=== PATIENT | male | born 1955 | race African-American/Black ===

== ENCOUNTER 2018-05-12 23:19 | Inpatient (IN) | payer MEDICARE ==
[2018-05-13 00:08] LABS: #Lymphocytes 0.7 thou/uL (1.20-3.40); #Monocytes 0.3 thou/uL (0.11-0.59); #Neutrophils 7.6 thou/uL (1.40-6.50); %Basophils 0.2 % (0.0-1.0); %Eosinophils 0.2 % (0.0-10.0); %Lymphocytes 8.1 % (21.0-51.0); %Monocytes 3.2 % (0.0-10.0); %Neutrophils 88.3 % (42.0-75.0); Hemoglobin 13.9 g/dL (14.0-18.0); Mean Corpuscular HGB CONC 34.4 g/dL (32.0-36.0); Mean Corpuscular Hemoglobin 31.5 pg (27.0-31.0); Mean Corpuscular Volume 91.5 fL (78.0-98.0); Mean Platelet Volume 8.5 fL (7.4-10.4); Platelet Count 384 thou/uL (130-400); RBC Distribution Width 13.2 % (11.5-14.5); White Blood Cell (WBC) Count 8.6 thou/uL (4.8-10.8)
[2018-05-13 00:24] LABS: Magnesium 2.3 mg/dL (1.6-2.6)
[2018-05-13 00:25] LABS: ALT (SGPT) 31 U/L (8-55); AST (SGOT) 19 U/L (5-34); Albumin 4.3 g/dL (3.4-4.8); Alkaline Phosphatase 100 U/L (40-150); Anion Gap 30 mmol/L (10-20); BUN (Urea Nitrogen) 31 mg/dL (8.4-25.7); Bilirubin, Total 0.4 mg/dL (0.2-1.2); Calc. Creatinine Clearance 0 mL/min (70-130); Calcium 9.9 mg/dL (7.8-10.44); Carbon Dioxide 11 mmol/L (23-31); Chloride 101 mmol/L (98-107); Estimated GFR-MDRD 40; Globulin 3.4 g/dL (2.4-3.5); Phosphorus 3.7 mg/dL (2.3-4.7); Potassium 4.9 mmol/L (3.5-5.1); Protein, Total 7.7 g/dL (5.8-8.1); Sodium 137 mmol/L (136-145)
[2018-05-13 00:30] LABS: Glucose 570 mg/dL (80-115)
[2018-05-13 00:31] LABS: Amphetamine Not Detected (NotDetected); Benzodiazepine Screen Not Detected (NotDetected); Bilirubin Negative (Negative); Blood, Urine Negative (Negative); Clarity CLEAR (Clear); Cocaine Metabolite Screen Not Detected (NotDetected); Glucose, Urine (Dipstick) >=1000 mg/dL (Negative); Leukocyte Negative (Negative); Medtox Reader # READER 4; Methamphetamine Not Detected (NotDetected); Nitrite Negative (Negative); Opiate Screen Detected (NotDetected); Phencyclidine (PCP) Not Detected (NotDetected); Protein, Urine (Dipstick) Negative (Neg-Trace); Specific Gravity, Urine 1.034 (1.002-1.036); THC/Cannabinoid Screen Not Detected (NotDetected); Tricyclic Screen Not Detected (NotDetected); Urobilinogen 0.2 mg/dL (0.2-1.0)
[2018-05-13 00:32] LABS: Barbiturates Screen Not Detected (NotDetected); Medtox Control Line Valid? VALID (VALID); Methadone Not Detected (NotDetected); Oxycodone Screen Not Detected (NotDetected)
[2018-05-13] MEDS ORDERED: Ondansetron PF 4 MG/2 ML Vial ONE ×2 (00:37→01:51)
[2018-05-13] MEDS ORDERED: Fentanyl 100 MCG/2 ML VIAL ONE (00:55)
[2018-05-13] MEDS ORDERED: Insulin Regular 300 UNITS/3 ML VIAL ONE (00:55)
[2018-05-13] MEDS ORDERED: Insulin Regular 100 units/100 ml in NS IVPB SCH (01:15)
[2018-05-13] MEDS ORDERED: Dextrose 50% Abboject 50 ML SYRINGE ONE ×2 (01:25→02:56)
[2018-05-13] MEDS ORDERED: Morphine 2 MG/ML SYRINGE ONE ×3 (01:51→06:22)
[2018-05-13] MEDS ORDERED: D5 1/2 NS w/20 mEq KCL 1,000 ML IV PRN (01:59)
[2018-05-13] MEDS ORDERED: Dextrose 5 %-0.45 % NaCl 1,000 ML IV PRN (01:59)
[2018-05-13] MEDS ORDERED: Acetaminophen 325 MG TAB PO PRN (01:59)
[2018-05-13] MEDS ORDERED: Sodium Chloride 0.9% 1,000 ML IV PRN ×4 (01:59)
[2018-05-13] MEDS ORDERED: NS 0.9% w/ 20 MEQ KCL 1,000 ML IV PRN ×2 (01:59)
[2018-05-13] MEDS ORDERED: CCU Electrolyte Replacement 1 EACH IVPB ONE (01:59)
[2018-05-13] MEDS ORDERED: Promethazine 25 MG TAB PO PRN (02:03)
[2018-05-13] MEDS ORDERED: Potassium Phosphate 12 MMOL in Sodium Chloride 0.9% 250 ML 250 ML IV PRN (02:15)
[2018-05-13] MEDS ORDERED: Potassium Chloride 40 MEQ in Sodium Chloride 0.9% 250 ML 250 ML IVPB PRN (02:15)
[2018-05-13] MEDS ORDERED: Potassium Chloride 40 MEQ in Premix Bag 1 BAG IVPB PRN (02:15)
[2018-05-13] MEDS ORDERED: Potassium Phosphate 15 MMOL in Sodium Chloride 0.9% 250 ML 250 ML IV PRN (02:15)
[2018-05-13] MEDS ORDERED: Magnesium 2 GM/NS 0.9% 100 ML 2 GM in Premix Bag 1 BAG IVPB PRN (02:15)
[2018-05-13] MEDS ORDERED: Magnesium Oxide 400 MG TAB PO PRN ×2 (02:15)
[2018-05-13] MEDS ORDERED: Potassium Phosphate 9 MMOL in Sodium Chloride 0.9% 100 ML IVPB PRN (02:15)
[2018-05-13] MEDS ORDERED: CCU ELECTROLYTE REPLACEMENT PROTOCOL FS PRN (02:15)
[2018-05-13] MEDS ORDERED: Potassium Chloride 20 MEQ TAB PO PRN (02:15)
[2018-05-13 02:43] LABS: Anion Gap 27 mmol/L (10-20); BUN (Urea Nitrogen) 29 mg/dL (8.4-25.7); Calc. Creatinine Clearance 0 mL/min (70-130); Calcium 9.4 mg/dL (7.8-10.44); Carbon Dioxide 10 mmol/L (23-31); Chloride 108 mmol/L (98-107); Estimated GFR-MDRD 44; Glucose 490 mg/dL (80-115); Potassium 3.9 mmol/L (3.5-5.1); Sodium 141 mmol/L (136-145)
[2018-05-13] MEDS ORDERED: Pantoprazole 40 MG VIAL ONE (02:56)
[2018-05-13 03:22] LABS: #Lymphocytes 0.7 thou/uL (1.20-3.40); #Monocytes 0.8 thou/uL (0.11-0.59); #Neutrophils 11.3 thou/uL (1.40-6.50); %Basophils 0.1 % (0.0-1.0); %Eosinophils 0.2 % (0.0-10.0); %Lymphocytes 5.2 % (21.0-51.0); %Monocytes 6.2 % (0.0-10.0); %Neutrophils 88.3 % (42.0-75.0); Hemoglobin 12.2 g/dL (14.0-18.0); Mean Corpuscular HGB CONC 33.3 g/dL (32.0-36.0); Mean Platelet Volume 8.4 fL (7.4-10.4); Platelet Count 345 thou/uL (130-400); RBC Distribution Width 13.1 % (11.5-14.5); Red Blood Cell (RBC) Count 4.05 mill/uL (4.70-6.10); White Blood Cell (WBC) Count 12.8 thou/uL (4.8-10.8)
[2018-05-13] MEDS ORDERED: Metoclopramide HCl 10 MG/2 ML VIAL ONE (03:35)
[2018-05-13 03:41] LABS: Anion Gap 23 mmol/L (10-20); BUN (Urea Nitrogen) 28 mg/dL (8.4-25.7); Calc. Creatinine Clearance 0 mL/min (70-130); Calcium 9.6 mg/dL (7.8-10.44); Carbon Dioxide 14 mmol/L (23-31); Chloride 111 mmol/L (98-107); Estimated GFR-MDRD 49; Glucose 300 mg/dL (80-115); Sodium 144 mmol/L (136-145)
[2018-05-13 04:32] LABS: Anion Gap 19 mmol/L (10-20); BUN (Urea Nitrogen) 27 mg/dL (8.4-25.7); Calc. Creatinine Clearance 0 mL/min (70-130); Calcium 9.2 mg/dL (7.8-10.44); Carbon Dioxide 14 mmol/L (23-31); Chloride 111 mmol/L (98-107); Estimated GFR-MDRD 52; Glucose 355 mg/dL (80-115); Potassium 3.8 mmol/L (3.5-5.1); Sodium 140 mmol/L (136-145)
[2018-05-13] MEDS ORDERED: Promethazine HCl 25 MG/ML VIAL ONE ×2 (05:09→09:23)
[2018-05-13 05:44] LABS: Anion Gap 19 mmol/L (10-20); BUN (Urea Nitrogen) 26 mg/dL (8.4-25.7); Calc. Creatinine Clearance 0 mL/min (70-130); Calcium 9.3 mg/dL (7.8-10.44); Carbon Dioxide 15 mmol/L (23-31); Chloride 109 mmol/L (98-107); Estimated GFR-MDRD 51; Glucose 378 mg/dL (80-115); Sodium 138 mmol/L (136-145)
[2018-05-13] MEDS ORDERED: Enoxaparin Sodium 40 MG/0.4 ML SYRINGE ONE (07:57)
[2018-05-13] MEDS ORDERED: Famotidine 20 MG TAB ONE (08:38)
[2018-05-13] MEDS ORDERED: Promethazine HCl 25 MG/ML VIAL IM/IV PRN (08:44)
--- NOTE | 2018-05-13 08:45 | RAD ---
AP VIEW CHEST: HISTORY: Chest pain, epigastric pain, vomiting. FINDINGS: AP view chest is obtained. EKG leads are seen over the chest. The lungs are well aerated. No evidence of active intrathoracic disease is seen. No evidence of effusions, pneumonia, or pneumothorax seen. IMPRESSION: Unremarkable AP view chest. POS: [facility]
[2018-05-13] MEDS ORDERED: Dextrose 50% Abboject 50 ML SYRINGE SLOW IVP PRN (08:46)
[2018-05-13] MEDS ORDERED: HumaLOG 300 UNITS/3 ML VIAL SC PRN (08:46)
[2018-05-13] MEDS ORDERED: Dextrose 5% in Water 1,000 ML IV PRN (08:46)
[2018-05-13] MEDS ORDERED: Insulin Glargine 10 UNITS in Pre-Filled Syringe 1 EACH SC SCH (09:00)
--- NOTE | 2018-05-13 09:04 | RAD ---
CHEST 1 VIEW: Date: 05/13/18 HISTORY: Chest pain. Epigastric pain. Emesis. FINDINGS: Portable semiupright chest radiograph demonstrates cervical fusion hardware. There is a right-sided i nternal jugular central venous catheter with distal tip projecting over the cavoatrial junction. Norm al cardiac silhouette. Pulmonary vessels and hilum are normal. Costophrenic angles are clear. No cons olidation or mass. No pneumothorax or osseous abnormalities. IMPRESSION: No acute cardiopulmonary process. POS: [facility]
[2018-05-13] MEDS ORDERED: HYDROcodone/Acetaminophen 10/325 mg Tablet ONE (09:54)
[2018-05-13 10:30] LABS: Anion Gap 23 mmol/L (10-20); BUN (Urea Nitrogen) 23 mg/dL (8.4-25.7); Calc. Creatinine Clearance 0 mL/min (70-130); Calcium 9.1 mg/dL (7.8-10.44); Chloride 113 mmol/L (98-107); Estimated GFR-MDRD 48; Glucose 513 mg/dL (80-115); Sodium 138 mmol/L (136-145)
[2018-05-13 10:34] LABS: Carbon Dioxide 9 mmol/L (23-31); Potassium 6.6 mmol/L (3.5-5.1)
[2018-05-13] MEDS ORDERED: Insulin Regular 300 UNITS/3 ML VIAL SC SCH (10:45)
--- NOTE | 2018-05-13 10:45 | HP ---
PRIMARY CARE PHYSICIAN: Dr. Peralta. CODE STATUS: Full code. TIME OF EVALUATION: 2 a.m. CHIEF COMPLAINT: Nausea, vomiting, throwing up. HISTORY OF PRESENT ILLNESS: This is a 62-year-old male patient with past medical history of diabetes, came to the hospital after having continuous nausea, vomiting, with no clear triggers, no alleviating factors, the patient reported that his symptoms started around 4 p.m. No fevers. Symptoms are severe. In the ER, the patient was diagnosed with DKA and treatment was started, accidentally received a higher dose of insulin. We have been adjusting the fluids and treatment with D50. The patient's DKA has been resolving. We are switching fluids now, and we also continued with DKA protocol and insulin drip depending on the next glucose reading, we will start with a lower dose of insulin to prevent hypoglycemia. Otherwise, we will follow with the DKA protocol. REVIEW OF SYSTEMS: CONSTITUTIONAL: The patient had no fever. He reported chills and generalized weakness. RESPIRATORY: No cough, sputum production, or shortness of breath. CARDIOVASCULAR: No chest pain or palpitations. GASTROINTESTINAL: The patient has nausea and vomiting. No diarrhea. He does have abdominal pain. STUDENT SERVICES DEAN: No dizziness, headache, or feeling lightheaded. GENITOURINARY: No burning on urination. EXTREMITIES: No leg swelling. All other systems were reviewed and negative except for the findings mentioned above. PAST MEDICAL HISTORY: Positive for pulmonary embolism, diabetes, and hypertension. SURGICAL HISTORY: Back surgery; neck surgery; orthopedic surgery of left knee, left hip, right shoulder. PSYCHIATRIC HISTORY: Includes anxiety. SOCIAL HISTORY: The patient drinks socially rarely. Denies any drug use. No smoking history. ALLERGIES: DIPHENHYDRAMINE, THIS HAS BEEN REVIEWED. THE PATIENT HAD RECEIVED MORPHINE WITH NO PROBLEMS. HE REPORTED ALLERGY TO OXYCODONE. REPORTED MEDICATIONS: 1. Glipizide. 2. Lisinopril. 3. Gregory. PHYSICAL EXAMINATION: VITAL SIGNS: On presentation, blood pressure 164/90 with a heart rate 95, respiratory rate was 20, temperature of 98.5, pain was 10/10, oxygen saturation was 100% on room air. GENERAL APPEARANCE: The patient is alert, in distress due to abdominal pain and continues to have nausea and vomiting. HEENT: Eyes, normal conjunctivae. Dry oral mucosae. Anicteric. No JVD. RESPIRATORY: Bilateral air entry. No rales. No wheezing. Symmetric expansion. CARDIOVASCULAR: The patient is tachycardic. Normal rhythm. No murmurs. No gallops. No edema. ABDOMEN: Soft. Normal bowel sounds. Tender. MUSCULOSKELETAL: Baseline range of motion and strength. No tenderness. SKIN: Warm and intact. No pallor. No rash. No redness. Peripheral pulses are present. Capillary refill seems to be intact. NEURO: No evidence of any new focal weakness. Baseline speech. Cranial nerves seems to be intact. PSYCH: The patient is in good mood. Anxious and in distress due to the pain and nausea and vomiting. Optimal judgment. DIAGNOSTIC STUDIES: EKG was disclosed with performing physician from ER and was reviewed. The patient has sinus bradycardia at a rate of 102, CA 130, QRS 70, QT corrected 490. Chest x-ray was reviewed by myself, report is pending. There are no significant abnormalities on the chest. Central line was placed in the right position. LABORATORY DATA: Labs were reviewed. The patient had a white count of 8.6 and repeat one went to 12, hemoglobin 13, and platelets 384. Sodium 137, potassium 4.9, chloride 101, carbon dioxide 11 and has corrected to 14, 15; anion gap 30 and has corrected to 19, BUN 31 and has come down to 26, initial creatinine was 2.0 and has come down to 1.6. Glucose was 570, came down to 370, phosphorus 3.7. Troponin was normal. Beta hydroxybutyrate 7.78. Glucosuria, ketonuria, and opioids were detected in urine. ASSESSMENT AND PLAN: The patient will be placed in the ICU for the following medical problems, more than minutes spent at bedside assessment of patient, monitoring the blood sugar and adjustment of treatment. 1. Diabetic ketoacidosis. The patient has been placed in diabetic ketoacidosis protocol, initial bolus was a higher dose, so we have been adjusting the fluids to prevent hypokalemia and hypoglycemia. The patient has been slowly improving, we will continue to adjust treatment as needed. 2. Severe abdominal pain. The patient needed for optimal pain control. This placing him at risk for complications from treatment. 3. Acute kidney injury, on presentation with a creatinine 2.0, has improved to 1.6. 4. High anion gap metabolic acidosis secondary to diabetic ketoacidosis, has been resolving. Anion gap is closed. Bicarb is still low at 15. 5. needing antiemetic medications. 6. Deep venous thrombosis prophylaxis. Job ID: [id number]
[2018-05-13] MEDS ORDERED: HumaLOG 300 UNITS/3 ML VIAL ONE (10:46)
[2018-05-13 13:30] LABS: Anion Gap 15 mmol/L (10-20); BUN (Urea Nitrogen) 22 mg/dL (8.4-25.7); Calc. Creatinine Clearance 0 mL/min (70-130); Calcium 8.7 mg/dL (7.8-10.44); Carbon Dioxide 16 mmol/L (23-31); Chloride 116 mmol/L (98-107); Estimated GFR-MDRD 58; Glucose 337 mg/dL (80-115); Magnesium 2.1 mg/dL (1.6-2.6); Phosphorus 1.8 mg/dL (2.3-4.7); Potassium 4.5 mmol/L (3.5-5.1); Sodium 142 mmol/L (136-145)
--- NOTE | 2018-05-13 13:40 | PDOC.EVN ---
Event Note - Event Note Event Note: pt seen and examined.chart reviewed.C/O pain in abdomen and vomiting Noted that AG closed and then open up as pt did not receive any insulin Overnight due to inadvertant use of a bolus dose given by mistake. Lantus ordered but not given due to delay from getting it from pharmacy. repeat labs show pt back in DKA. Will restart on Insulin drip and DKA protocol. High potassium noted and it will be treated with IV Insulin / Labs rechecked in one hour after drip and are better .Recheck next BMP in 3 hours and cont DKA prototcol. Pt and family updated about plan. Pt reports that he is a Typ[e 2 diabetic and does not take any insulin at home as it makes him sick.Education provided about insulin necessity halfway.Will consult dietitian.
[2018-05-13] MEDS ORDERED: Potassium Phosphate 9 MMOL in Sodium Chloride 0.9% 250 ML 250 ML IVPB SCH (13:45)
[2018-05-13] MEDS: D5 NS w/ 40 mEq KCl 1,000 ML IV SCH ×4 (13:52→14:00)
[2018-05-13] MEDS: Enoxaparin Sodium 40 MG/0.4 ML SYRINGE SC SCH (13:53)
[2018-05-13] MEDS: Sodium Chloride 0.9% 1,000 ML IV SCH ×2 (13:54→14:40)
[2018-05-13] MEDS: Famotidine 20 MG TAB PO SCH ×2 (13:55→20:27)
[2018-05-13] MEDS: Gabapentin 300 MG CAP PO SCH ×3 (13:59→20:27)
[2018-05-13] MEDS: HYDROcodone/Acetaminophen 10/325 mg Tablet PO PRN ×2 (14:57→22:51)
[2018-05-13 16:59] LABS: Anion Gap 10 mmol/L (10-20); BUN (Urea Nitrogen) 18 mg/dL (8.4-25.7); Calc. Creatinine Clearance 0 mL/min (70-130); Calcium 8.4 mg/dL (7.8-10.44); Carbon Dioxide 20 mmol/L (23-31); Chloride 117 mmol/L (98-107); Estimated GFR-MDRD 76; Glucose 154 mg/dL (80-115); Potassium 3.9 mmol/L (3.5-5.1); Sodium 143 mmol/L (136-145)
[2018-05-13] MEDS: Sodium Chloride 0.45% 1,000 ML IV SCH (17:17)
[2018-05-13] MEDS: Insulin Glargine 20 UNITS in Pre-Filled Syringe 1 EACH SC SCH (20:28)
[2018-05-13] MEDS ORDERED: Docusate 100 MG CAP PO SCH (21:00)
--- NOTE | 2018-05-13 22:37 | CON ---
DATE OF CONSULTATION: 05/13/2018 SERVICE: Pulmonary Medicine. REASON FOR CONSULT: ICU patient. HISTORY OF PRESENT ILLNESS: The patient is a 62-year-old male with past medical history significant for a 4-5 day history of cough, congestion, and green sputum production. He then had a 3-day history of nausea and vomiting. He had a positive sick contact. He denies any current shortness of breath, fever or abdominal discomfort. Overnight, he improved modestly. Otherwise, there has been no interval change to his condition. He does not take any insulin at home. He actually has an aversion to taking any. PAST MEDICAL HISTORY: 1. Type 2 diabetes mellitus. 2. History of pulmonary embolism. 3. Hypertension. PAST SURGICAL HISTORY: 1. Back surgery. 2. Neck surgery. 3. Left knee surgery. 4. Left hip surgery. 5. Right shoulder surgery. SOCIAL HISTORY: He drinks rarely. He denies any alcohol, tobacco or illicit drug use. FAMILY HISTORY: Noncontributory. ALLERGIES: BENADRYL, MORPHINE, OXYCODONE. MEDICATIONS: List of his inpatient medications was reviewed. Multiple updates were made. REVIEW OF SYSTEMS: General, head, ears, eyes, nose, throat, cardiovascular, respiratory, GI, , musculoskeletal, neurologic, and skin are negative except as mentioned in the HPI. PHYSICAL EXAMINATION: VITAL SIGNS: Afebrile, pulse 89, blood pressure 162/73, respirations 18, saturation 100% on room air. GENERAL: The patient is awake, alert, in no apparent distress. LUNGS: Decent air entry. There is no prolonged expiratory phase or wheezing present. HEART: Normal rate and regular. ABDOMEN: Soft, nontender, and nondistended. Bowel sounds are positive. MUSCULOSKELETAL: No cyanosis or clubbing. There is no pitting in the bilateral lower extremities noted. NEUROLOGIC: Grossly nonfocal. LABORATORY DATA: WBC 12.8, hemoglobin 12.2, platelets 345,000. Creatinine 1.48 and gently downtrending. Basic metabolic profile is otherwise unremarkable. Phosphorus is 1.8, which is currently being replaced and magnesium 2.1. Urinalysis is positive for glycosuria, and ketonuria. Opiates are positive on the urine drug screen. BHB is 7.78. Urine culture is growing a contaminant. IMAGING: Chest x-ray demonstrates no acute cardiopulmonary abnormality. ASSESSMENT: 1. Acute bronchitis. 2. Diabetic ketoacidosis. 3. Type 2 diabetes mellitus. 4. Acute kidney injury, improving. PLAN: Since his heart rate is much better and he is now euvolemic, I will back off on his fluids to a significant degree. We will continue the insulin drip until his gap is closed, and he is tolerating p.o. with a good appetite. Once this occurs, we will make an attempt to transition him once again on to long-acting insulin. Pulmonary will continue to follow in this location. Job ID: [id number]
[2018-05-13] MEDS: Ondansetron PF 4 MG/2 ML Vial IVP PRN (22:51)
[2018-05-14] MEDS: Sodium Chloride 0.45% 1,000 ML IV SCH ×2 (01:11→10:10)
[2018-05-14] MEDS: HYDROcodone/Acetaminophen 10/325 mg Tablet PO PRN ×4 (04:14→18:42)
[2018-05-14] MEDS: Famotidine 20 MG TAB PO SCH ×2 (04:14→20:50)
[2018-05-14 04:57] LABS: Anion Gap 11 mmol/L (10-20); BUN (Urea Nitrogen) 13 mg/dL (8.4-25.7); Calc. Creatinine Clearance 0 mL/min (70-130); Calcium 8.2 mg/dL (7.8-10.44); Carbon Dioxide 20 mmol/L (23-31); Chloride 114 mmol/L (98-107); Estimated GFR-MDRD Greater than 90; Glucose 166 mg/dL (80-115); Potassium 4.2 mmol/L (3.5-5.1); Sodium 141 mmol/L (136-145)
[2018-05-14 05:12] LABS: Phosphorus 2.5 mg/dL (2.3-4.7)
[2018-05-14] MEDS: HumaLOG 300 UNITS/3 ML VIAL SC PRN (06:07)
[2018-05-14] MEDS: Gabapentin 300 MG CAP PO SCH ×3 (08:28→20:51)
[2018-05-14] MEDS: Enoxaparin Sodium 40 MG/0.4 ML SYRINGE SC SCH (08:28)
[2018-05-14] MEDS: Lisinopril 20 MG TAB PO SCH (08:28)
[2018-05-14] MEDS ORDERED: Polyethylene Glycol 3350 17 GM Packet PO SCH (09:00)
[2018-05-14] MEDS ORDERED: Mag-Al 1200 mg/1200 mg/30 ML UDCUP PO PRN (10:40)
--- NOTE | 2018-05-14 10:43 | PDOC.PN ---
- Subjective Encounter Start Date: 05/14/18 Encounter Start Time: 10:41 Subjective: feels better. still some heartburn -: no vomiting this morning.tolerating liquid diet - Objective Resuscitation Status - Order Detail: 05/13/18 01:59 Resuscitation Status Routine Resuscitation Status: FULL: Full Resuscitation MAR Reviewed: Yes Vital Signs & Weight: Vital Signs (12 hours) Temp Pulse Resp BP BP Pulse Ox 05/14/18 08:28 168/89 H 05/14/18 07:43 100 05/14/18 07:38 99.2 F 82 163/94 H 100 05/14/18 04:00 98.7 F 90 18 156/85 H 100 05/14/18 00:00 98.9 F 91 16 158/85 H 100 Weight Weight 5.644 oz I&O: 05/13/18 05/14/18 05/15/18 06:59 06:59 06:59 Intake Total 5055 120 Output Total 700 Balance 4355 120 Result Diagrams: 05/13/18 03:09 05/14/18 04:05 Additional Labs: Accuchecks 05/14/18 05/14/18 05/13/18 06:07 04:19 21:06 POC Glucose 170 H 166 H 111 H 05/13/18 05/13/18 05/13/18 20:17 19:14 18:14 POC Glucose 93 193 H 100 05/13/18 05/13/18 05/13/18 17:17 16:17 15:17 POC Glucose 141 H 211 H 205 H 05/13/18 05/13/18 05/13/18 14:16 13:17 12:15 POC Glucose 224 H 300 H 354 H 05/13/18 10:42 POC Glucose 414 H Laboratory Tests 05/12/18 05/13/18 05/13/18 23:53 02:16 03:09 Anion Gap 30 H 27 H 23 H Creatinine 2.03 H 1.90 H 1.73 H Phosphorus Magnesium 05/13/18 05/13/18 05/13/18 03:58 05:00 09:56 Anion Gap 19 19 23 H Creatinine 1.62 H 1.65 H Phosphorus Magnesium 05/13/18 05/13/18 05/14/18 12:52 16:29 04:05 Anion Gap 15 10 11 Creatinine Phosphorus Magnesium 2.0 05/14/18 04:05 Anion Gap Creatinine Phosphorus 2.5 Magnesium Phys Exam - Physical Examination Constitutional: NAD HEENT: PERRLA, moist MMs, sclera anicteric, oral pharynx no lesions Neck: no nodes, no JVD, supple, full ROM Respiratory: no wheezing, no rales, no rhonchi Cardiovascular: RRR, no significant murmur Gastrointestinal: soft, non-tender, no distention, positive bowel sounds Musculoskeletal: no edema, pulses present Neurological: non-focal, normal sensation, moves all 4 limbs Psychiatric: normal affect, A&O x 3 Skin: no rash Dx/Plan (1) Diabetic keto-acidosis Code(s): E13.10 - OTH DIABETES MELLITUS WITH KETOACIDOSIS WITHOUT COMA Status : Acute Qualifiers: Diabetes mellitus type: type 2 Diabetes mellitus complication detail: without coma Qualified Code(s): E11.10 - Type 2 diabetes mellitus with ketoacidosis without coma (2) Uncontrolled diabetes mellitus Code(s): E11.65 - TYPE 2 DIABETES MELLITUS WITH HYPERGLYCEMIA Status: Acute (3) HTN (hypertension) Code(s): I10 - ESSENTIAL (PRIMARY) HYPERTENSION Status: Chronic - Plan DVT proph w/SCDs Out of DKA.cont lantus and SSI.reduce IVF -: add PPI -: accuchecks achs. -: HD stable. -: donna HERRERA tomorrow.education provided * . Review of Systems - Review of Systems Constitutional: weakness, malaise. negative: fever, chills, sweats, other ENT: negative: Ear Pain, Ear Discharge, Nose Pain, Nose Discharge, Nose Congestion, Mouth Pain, Mouth Swelling, Throat Pain, Throat Swelling, Other Respiratory: negative: Cough, Dry, Shortness of Breath, Hemoptysis, SOB with Excertion, Pleuritic Pain, Sputum, Wheezing Cardiovascular: negative: chest pain, palpitations, orthopnea, paroxysmal nocturnal dyspnea, edema, light headedness, other Gastrointestinal: Nausea, Abdominal Pain. negative: Vomiting, Diarrhea, Constipation, Melena, Hematochezia, Other Genitourinary: negative: Dysuria, Frequency, Incontinence, Hematuria, Retention , Other Musculoskeletal: negative: Neck Pain, Shoulder Pain, Arm Pain, Back Pain, Hand Pain, Leg Pain, Foot Pain, Other Neurological: negative: Weakness, Numbness, Incoordination, Change in Speech, Confusion, Seizures, Other - Medications/Allergies Allergies/Adverse Reactions: Allergies Allergy/AdvReac Type Severity Reaction Status Date / Time morphine Allergy Verified 05/13/18 15:01 diphenhydramine HCl AdvReac Unknown Verified 05/13/18 15:01 [From Benadryl] Medications: Current Medications Acetaminophen (Tylenol) 650 mg PO Q4H PRN PRN Reason: Headache/Fever/Mild Pain (1-3) Hydrocodone Bitart/Acetaminophen ([place] 10/325) 1 tab PO Q4H PRN PRN Reason: Moderate Pain (4-6) Last Admin: 05/14/18 08:33 Dose: 1 tab Al Hydroxide/Mg Hydroxide (Maalox) 30 ml PO Q4H PRN PRN Reason: Heartburn or Indigestion Dextrose/Water (Dextrose 50%) 25 gm SLOW IVP PRN PRN PRN Reason: Hypoglycemia Enoxaparin Sodium (Lovenox) 40 mg SC 0900 [facility] Last Admin: 05/14/18 08:28 Dose: 40 mg Famotidine (Pepcid) 20 mg PO BID [facility] Last Admin: 05/14/18 04:14 Dose: 20 mg Gabapentin (Neurontin) 600 mg PO TID [facility] Last Admin: 05/14/18 08:28 Dose: 600 mg Glucagon (Glucagon) 1 mg IM PRN PRN PRN Reason: Hypoglycemia Potassium Chloride 40 meq/ (Sodium Chloride) 270 mls @ 135 mls/hr IVPB ASDIR PRN PRN Reason: FOR SERUM K+ 2.5 - 3.5 Potassium Chloride 40 meq/ (Device) 100 mls @ 50 mls/hr IVPB ASDIR PRN PRN Reason: FOR SERUM K+ 2.5 - 3.5 Magnesium Sulfate 1 gm/ Sodium (Chloride) 102 mls @ 102 mls/hr IV PRN PRN PRN Reason: MAG LEVEL 1.4 - 2.0 Magnesium Sulfate 2 gm/ Device 100 mls @ 100 mls/hr IVPB ASDIR PRN PRN Reason: MAGNESIUM < 1.4 Potassium Phosphate 9 mmol/ (Sodium Chloride) 103 mls @ 25.75 mls/hr IVPB ASDIR PRN PRN Reason: Phosphate 1.0-1.8 Potassium Phosphate 12 mmol/ (Sodium Chloride) 254 mls @ 63.5 mls/hr IV ASDIR PRN PRN Reason: Serum phosphate 0.5-0.9 Potassium Phosphate 15 mmol/ (Sodium Chloride) 255 mls @ 63.75 mls/hr IV ASDIR PRN PRN Reason: Serum Phos < 0.5 Dextrose/Water (D5w) 1,000 mls @ 0 mls/hr IV .Q0M PRN PRN Reason: Hypoglycemia Insulin Glargine 20 units/ (Miscellaneous Medication) 0.2 mls @ 0 mls/hr SC HS [facility] Last Admin: 05/13/18 20:28 Dose: 0.2 mls Sodium Chloride (1/2 Normal Saline) 1,000 mls @ 50 mls/hr IV .Q20H [facility] Last Admin: 05/14/18 10:10 Dose: 1,000 mls Insulin Human Lispro (Humalog) 0 units SC .MODERATE SLIDING SC PRN PRN Reason: Moderate Correctional Scale Last Admin: 05/14/18 06:07 Dose: 2 unit Insulin Human Lispro (Humalog) 0 units SC .BEDTIME SLIDING SC PRN PRN Reason: Bedtime Correctional Scale Levofloxacin (Levaquin) 750 mg PO DAILY [facility] Stop: 05/17/18 09:01 Last Admin: 05/14/18 08:28 Dose: 750 mg Lisinopril (Zestril) 20 mg PO DAILY [facility] Last Admin: 05/14/18 08:28 Dose: 20 mg Magnesium Oxide (Magnesium Oxide) 400 mg PO BIDPRN PRN PRN Reason: FOR SERUM MAG 1.4 - 2.0 Magnesium Oxide (Magnesium Oxide) 800 mg PO PRN PRN PRN Reason: FOR SERUM MAG < 1.4 Miscellaneous Medication (Phos-Nak) 1 pkt PO TIDPRN PRN PRN Reason: FOR PHOS LEVEL 1.0 - 1.8 Miscellaneous Medication (Phos-Nak) 2 pkt PO TIDPRN PRN PRN Reason: FOR PHOS LEVEL 0.5 - 1.0 Ccu Electrolyte (Replacement Protocol) 0 each FS PRN PRN PRN Reason: FOR ELECTROLYTE REPLACEMENT Ondansetron HCl (Zofran) 4 mg IVP Q6H PRN PRN Reason: Nausea/Vomiting Last Admin: 05/13/18 22:51 Dose: 4 mg Pantoprazole Sodium (Protonix) 40 mg IVP ONE [facility] Potassium Chloride (K-Dur) 40 meq PO ASDIR PRN PRN Reason: FOR SERUM K+ 2.5 - 3.5 Potassium Chloride (Klor-Con) 40 meq PER TUBE ASDIR PRN PRN Reason: FOR SERUM K+ 2.5-3.5 Promethazine HCl (Phenergan) 25 mg PO Q6HR PRN PRN Reason: Nausea/Vomiting Promethazine HCl (Phenergan) 25 mg IM/IV Q6H PRN PRN Reason: Nausea/Vomiting Sodium Chloride (Flush - Normal Saline) 10 ml IVF Q12HR [facility] Last Admin: 05/14/18 08:29 Dose: 10 ml Sodium Chloride (Flush - Normal Saline) 10 ml IVF PRN PRN PRN Reason: Saline Flush
[2018-05-14] MEDS ORDERED: Pantoprazole 40 MG VIAL IVP SCH (10:45)
[2018-05-14 11:49] VITALS: BMI 21.8
--- NOTE | 2018-05-14 12:52 | EKG ---
Test Reason : CHEST PAIN Blood Pressure : / mmHG Vent. Rate : 102 BPM Atrial Rate : 102 BPM P-R Int : 130 ms QRS Dur : 070 ms QT Int : 376 ms P-R-T Axes : 080 102 059 degrees QTc Int : 490 ms Sinus tachycardia Possible Left atrial enlargement Rightward axis Pulmonary disease pattern Abnormal ECG Confirmed by SAVANNAH ALCAZAR [id number]), legal editor GAMA CH ([id number] on 05/14/2018 12:52:02 PM Referred By: Confirmed By:SAVANNAH ALCAZAR
--- NOTE | 2018-05-14 16:56 | PRG ---
DATE OF SERVICE: 05/14/2018 SERVICE: Pulmonary Medicine. INTERVAL HISTORY: The patient is doing okay from a respiratory standpoint. He is breathing comfortably. He is not having a cough today. He has complaints of abdominal discomfort. He has not had a bowel movement and denies passing gas. PHYSICAL EXAMINATION: VITAL SIGNS: Afebrile, pulse 74, blood pressure 171/87, respirations 17, and saturation 100% on room air. GENERAL: The patient is awake, alert, in no apparent distress. LUNGS: Excellent air entry. There is no prolonged expiratory phase or wheezing present. HEART: Normal rate, regular. ABDOMEN: Soft. Tender to palpation. There is a little bit of rebound. Bowel sounds are positive. LABORATORY DATA: WBC 12.8. Sodium 141, chloride 114 and downtrending, bicarb 20, anion gap 11. Magnesium 2.0, phosphorus 2.5. Urine culture is growing a contaminant. ASSESSMENT: 1. Acute bronchitis, improving. 2. Diabetic ketoacidosis, resolved. 3. Type 2 diabetes mellitus. 4. Acute kidney injury, resolved. 5. Abdominal pain. DISCUSSION AND PLAN: The patient's appetite really has not picked up firmly. At this point, however, he has no further requirements for inpatient Pulmonary Critical Care opinion. If his abdominal discomfort persists, an additional investigation may be warranted. I will sign off at this time. Please call if he has significant clinical deterioration. Job ID: [id number]
[2018-05-14] MEDS: Ondansetron PF 4 MG/2 ML Vial IVP PRN (18:44)
[2018-05-14] MEDS: Insulin Glargine 20 UNITS in Pre-Filled Syringe 1 EACH SC SCH (20:52)
[2018-05-15] MEDS: HYDROcodone/Acetaminophen 10/325 mg Tablet PO PRN ×5 (00:43→21:04)
[2018-05-15] MEDS: Sodium Chloride 0.45% 1,000 ML IV SCH ×2 (05:29→19:19)
[2018-05-15] MEDS: Ondansetron PF 4 MG/2 ML Vial IVP PRN (07:18)
[2018-05-15 08:05] LABS: Anion Gap 13 mmol/L (10-20); BUN (Urea Nitrogen) 9 mg/dL (8.4-25.7); Calc. Creatinine Clearance 83 mL/min (70-130); Carbon Dioxide 21 mmol/L (23-31); Chloride 108 mmol/L (98-107); Estimated GFR-MDRD Greater than 90; Glucose 116 mg/dL (80-115); Potassium 4.1 mmol/L (3.5-5.1); Sodium 138 mmol/L (136-145)
[2018-05-15] MEDS ORDERED: Metoclopramide HCl 10 MG/2 ML VIAL IVP PRN (08:43)
[2018-05-15] MEDS: Sodium Chloride 0.9% 1,000 ML IV SCH ×2 (09:54→21:05)
[2018-05-15] MEDS: Pantoprazole 40 MG VIAL IVP SCH (09:57)
[2018-05-15] MEDS: Gabapentin 300 MG CAP PO SCH ×3 (10:05→21:05)
[2018-05-15] MEDS: Lisinopril 20 MG TAB PO SCH (10:05)
--- NOTE | 2018-05-15 10:05 | CT ---
CT OF THE ABDOMEN AND PELVIS WITH IV CONTRAST: DATE: 05/15/2018. PROVIDED CLINICAL HISTORY: Abdominal pain. FINDINGS: Comparison is made with the examination dated 09/22/2014. The visualized lung bases are free of signi ficant opacity. The liver, spleen, pancreas, kidneys, and adrenal glands demonstrate no significant abnormality. Sim ple-appearing left renal cyst is seen. There is no bowel dilatation, inflammatory fat stranding, free fluid, or free air apparent. Evaluati on of the pelvis is somewhat limited due to beam-hardening artifact from left total hip arthroplasty. Lower lumbar spine postoperative changes and IVC filter are noted. IMPRESSION: No evidence for an acute process. POS: [facility]
[2018-05-15] MEDS: Enoxaparin Sodium 40 MG/0.4 ML SYRINGE SC SCH (10:06)
[2018-05-15] MEDS ORDERED: Polyethylene Glycol 3350 17 GM Packet PO PRN (10:55)
[2018-05-15] MEDS ORDERED: Bisacodyl 5 MG TAB PO PRN (10:55)
--- NOTE | 2018-05-15 10:56 | PDOC.PN ---
- Subjective Encounter Start Date: 05/15/18 Encounter Start Time: 10:54 Subjective: c/o pain in abdomen ,worse in Left side w left ant chest wall pain -: c/o nausea.does not want to eat - Objective Resuscitation Status - Order Detail: 05/13/18 01:59 Resuscitation Status Routine Resuscitation Status: FULL: Full Resuscitation MAR Reviewed: Yes Vital Signs & Weight: Vital Signs (12 hours) Temp Pulse Resp BP BP Pulse Ox 05/15/18 10:05 165/90 H 05/15/18 07:43 98.3 F 82 16 165/90 H 99 05/15/18 03:40 99.0 F 95 12 166/83 H 99 05/14/18 23:59 98.9 F 85 12 177/85 H 99 Weight Weight 147 lb 11.2 oz I&O: 05/14/18 05/15/18 05/16/18 06:59 06:59 06:59 Intake Total 5055 2172 Output Total 700 1700 Balance 4355 472 Result Diagrams: 05/13/18 03:09 05/15/18 06:29 Additional Labs: Accuchecks 05/15/18 05/14/18 05/14/18 05:33 20:51 16:18 POC Glucose 120 H 145 H 109 05/14/18 12:25 POC Glucose 123 H Microbiology 05/13/18 00:10 Urine clean catch Urine Culture - Final Beta-hemolytic Streptococcus Laboratory Tests 05/13/18 05/13/18 05/13/18 09:56 12:52 16:29 Carbon Dioxide 9 L* 16 L 20 L Lipase 05/14/18 05/15/18 05/15/18 04:05 06:29 06:29 Carbon Dioxide 20 L 21 L Lipase 44 Radiology Reviewed by me: Yes (CT A/P-no acute process) Phys Exam - Physical Examination Constitutional: NAD uncomfortable HEENT: PERRLA, moist MMs, sclera anicteric, oral pharynx no lesions Neck: no nodes, no JVD, supple, full ROM Respiratory: no wheezing, no rales, no rhonchi, clear to auscultation bilateral Cardiovascular: RRR, no significant murmur TTP ant left chest wall Gastrointestinal: soft, no distention, positive bowel sounds TTP left lower quadrant and milder everywhere else Musculoskeletal: no edema, pulses present swelling in feet Neurological: non-focal, normal sensation, moves all 4 limbs Lymphatic: no nodes Psychiatric: normal affect, A&O x 3 Skin: no rash Dx/Plan (1) Abdominal pain Code(s): R10.9 - UNSPECIFIED ABDOMINAL PAIN Status: Acute (2) Diabetic keto-acidosis Code(s): E13.10 - OTH DIABETES MELLITUS WITH KETOACIDOSIS WITHOUT COMA Status : Acute Qualifiers: Diabetes mellitus type: type 2 Diabetes mellitus complication detail: without coma Qualified Code(s): E11.10 - Type 2 diabetes mellitus with ketoacidosis without coma Comment: Improved (3) Uncontrolled diabetes mellitus Code(s): E11.65 - TYPE 2 DIABETES MELLITUS WITH HYPERGLYCEMIA Status: Acute (4) HTN (hypertension) Code(s): I10 - ESSENTIAL (PRIMARY) HYPERTENSION Status: Chronic (5) Chronic pain Code(s): G89.29 - OTHER CHRONIC PAIN Status: Acute - Plan out of bed/ambulate, DVT proph w/lovenox, DVT proph w/SCDs DKA rsolved.Acidosis improving.Ct A/P WNL. -: no clear reason for Abd pain.will make NPo and start IVF. -: re-introduce liquid diet tomorow. -: pt w h/o chr pain & narcotic dependenec.? withdrawl -: Lipase checked and NL. check CPK given tenderness.am labs * .reduce lantus as NPO * add amlodipine given high BP.on CLYDE-I Bowel regimen Review of Systems - Review of Systems Constitutional: weakness, malaise. negative: fever, chills, sweats, other Respiratory: negative: Cough, Dry, Shortness of Breath, Hemoptysis, SOB with Excertion, Pleuritic Pain, Sputum, Wheezing Cardiovascular: negative: chest pain, palpitations, orthopnea, paroxysmal nocturnal dyspnea, edema, light headedness, other Gastrointestinal: Nausea, Abdominal Pain, Constipation. negative: Vomiting, Diarrhea, Melena, Hematochezia, Other Genitourinary: negative: Dysuria, Frequency, Incontinence, Hematuria, Retention , Other Musculoskeletal: negative: Neck Pain, Shoulder Pain, Arm Pain, Back Pain, Hand Pain, Leg Pain, Foot Pain, Other Neurological: negative: Weakness, Numbness, Incoordination, Change in Speech, Confusion, Seizures, Other - Medications/Allergies Allergies/Adverse Reactions: Allergies Allergy/AdvReac Type Severity Reaction Status Date / Time morphine Allergy Verified 05/13/18 15:01 diphenhydramine HCl AdvReac Unknown Verified 05/13/18 15:01 [From Balaji] Medications: Current Medications Acetaminophen (Tylenol) 650 mg PO Q4H PRN PRN Reason: Headache/Fever/Mild Pain (1-3) Hydrocodone Bitart/Acetaminophen ([place] 10/325) 1 tab PO Q4H PRN PRN Reason: Moderate Pain (4-6) Last Admin: 05/15/18 05:28 Dose: 1 tab Al Hydroxide/Mg Hydroxide (Maalox) 30 ml PO Q4H PRN PRN Reason: Heartburn or Indigestion Dextrose/Water (Dextrose 50%) 25 gm SLOW IVP PRN PRN PRN Reason: Hypoglycemia Enoxaparin Sodium (Lovenox) 40 mg SC 0900 [facility] Last Admin: 05/15/18 10:06 Dose: 40 mg Gabapentin (Neurontin) 600 mg PO TID [facility] Last Admin: 05/15/18 10:05 Dose: 600 mg Glucagon (Glucagon) 1 mg IM PRN PRN PRN Reason: Hypoglycemia Potassium Chloride 40 meq/ (Sodium Chloride) 270 mls @ 135 mls/hr IVPB ASDIR PRN PRN Reason: FOR SERUM K+ 2.5 - 3.5 Potassium Chloride 40 meq/ (Device) 100 mls @ 50 mls/hr IVPB ASDIR PRN PRN Reason: FOR SERUM K+ 2.5 - 3.5 Magnesium Sulfate 1 gm/ Sodium (Chloride) 102 mls @ 102 mls/hr IV PRN PRN PRN Reason: MAG LEVEL 1.4 - 2.0 Magnesium Sulfate 2 gm/ Device 100 mls @ 100 mls/hr IVPB ASDIR PRN PRN Reason: MAGNESIUM < 1.4 Potassium Phosphate 9 mmol/ (Sodium Chloride) 103 mls @ 25.75 mls/hr IVPB ASDIR PRN PRN Reason: Phosphate 1.0-1.8 Potassium Phosphate 12 mmol/ (Sodium Chloride) 254 mls @ 63.5 mls/hr IV ASDIR PRN PRN Reason: Serum phosphate 0.5-0.9 Potassium Phosphate 15 mmol/ (Sodium Chloride) 255 mls @ 63.75 mls/hr IV ASDIR PRN PRN Reason: Serum Phos < 0.5 Dextrose/Water (D5w) 1,000 mls @ 0 mls/hr IV .Q0M PRN PRN Reason: Hypoglycemia Insulin Glargine 20 units/ (Miscellaneous Medication) 0.2 mls @ 0 mls/hr SC HS [facility] Last Admin: 05/14/18 20:52 Dose: 0.2 mls Sodium Chloride (1/2 Normal Saline) 1,000 mls @ 50 mls/hr IV .Q20H [facility] Last Admin: 05/15/18 05:29 Dose: 1,000 mls Sodium Chloride (Normal Saline 0.9%) 1,000 mls @ 100 mls/hr IV .Q10H [facility] Last Admin: 05/15/18 09:54 Dose: 1,000 mls Insulin Human Lispro (Humalog) 0 units SC .MODERATE SLIDING SC PRN PRN Reason: Moderate Correctional Scale Last Admin: 05/14/18 06:07 Dose: 2 unit Insulin Human Lispro (Humalog) 0 units SC .BEDTIME SLIDING SC PRN PRN Reason: Bedtime Correctional Scale Levofloxacin (Levaquin) 750 mg PO DAILY [facility] Stop: 05/17/18 09:01 Last Admin: 05/15/18 10:05 Dose: 750 mg Lisinopril (Zestril) 20 mg PO DAILY [facility] Last Admin: 05/15/18 10:05 Dose: 20 mg Magnesium Oxide (Magnesium Oxide) 400 mg PO BIDPRN PRN PRN Reason: FOR SERUM MAG 1.4 - 2.0 Magnesium Oxide (Magnesium Oxide) 800 mg PO PRN PRN PRN Reason: FOR SERUM MAG < 1.4 Metoclopramide HCl (Reglan) 10 mg IVP Q6H PRN PRN Reason: Nausea/Vomiting Miscellaneous Medication (Phos-Nak) 1 pkt PO TIDPRN PRN PRN Reason: FOR PHOS LEVEL 1.0 - 1.8 Miscellaneous Medication (Phos-Nak) 2 pkt PO TIDPRN PRN PRN Reason: FOR PHOS LEVEL 0.5 - 1.0 Ccu Electrolyte (Replacement Protocol) 0 each FS PRN PRN PRN Reason: FOR ELECTROLYTE REPLACEMENT Ondansetron HCl (Zofran) 4 mg IVP Q6H PRN PRN Reason: Nausea/Vomiting Last Admin: 05/15/18 07:18 Dose: 4 mg Pantoprazole Sodium (Protonix) 40 mg IVP DAILY [facility] Last Admin: 05/15/18 09:57 Dose: 40 mg Potassium Chloride (K-Dur) 40 meq PO ASDIR PRN PRN Reason: FOR SERUM K+ 2.5 - 3.5 Potassium Chloride (Klor-Con) 40 meq PER TUBE ASDIR PRN PRN Reason: FOR SERUM K+ 2.5-3.5 Promethazine HCl (Phenergan) 25 mg IM/IV Q6H PRN PRN Reason: Nausea/Vomiting Sodium Chloride (Flush - Normal Saline) 10 ml IVF Q12HR [facility] Last Admin: 05/15/18 10:07 Dose: 10 ml Sodium Chloride (Flush - Normal Saline) 10 ml IVF PRN PRN PRN Reason: Saline Flush
[2018-05-15] MEDS ORDERED: Amlodipine 5 MG TAB PO SCH (11:15)
[2018-05-15] MEDS ORDERED: Iopamidol 370 76% 100 ML VIAL ONE (13:40)
[2018-05-15] MEDS ORDERED: Insulin Glargine 5 UNITS in Pre-Filled Syringe 1 EACH SC SCH (21:00)
[2018-05-16] MEDS: HYDROcodone/Acetaminophen 10/325 mg Tablet PO PRN ×6 (01:03→21:11)
[2018-05-16] MEDS: Sodium Chloride 0.9% 1,000 ML IV SCH ×2 (05:17→16:33)
[2018-05-16 07:36] LABS: Anion Gap 11 mmol/L (10-20); BUN (Urea Nitrogen) 9 mg/dL (8.4-25.7); Calc. Creatinine Clearance 75 mL/min (70-130); Calcium 9.2 mg/dL (7.8-10.44); Carbon Dioxide 26 mmol/L (23-31); Chloride 105 mmol/L (98-107); Estimated GFR-MDRD Greater than 90; Glucose 153 mg/dL (80-115); Potassium 3.6 mmol/L (3.5-5.1); Sodium 138 mmol/L (136-145)
[2018-05-16] MEDS ORDERED: Insulin Glargine 5 UNITS in Pre-Filled Syringe 1 EACH SC SCH (09:00)
[2018-05-16] MEDS: Lisinopril 20 MG TAB PO SCH (09:06)
[2018-05-16] MEDS: Enoxaparin Sodium 40 MG/0.4 ML SYRINGE SC SCH (09:08)
[2018-05-16] MEDS: Gabapentin 300 MG CAP PO SCH ×3 (09:08→21:10)
[2018-05-16] MEDS: Amlodipine 5 MG TAB PO SCH (09:08)
[2018-05-16] MEDS: Pantoprazole 40 MG VIAL IVP SCH (09:08)
[2018-05-16] MEDS: HumaLOG 300 UNITS/3 ML VIAL SC PRN (12:01)
[2018-05-16] MEDS ORDERED: Dextrose 5% in Water 1,000 ML IV PRN (12:29)
[2018-05-16] MEDS ORDERED: Dextrose 50% Abboject 50 ML SYRINGE SLOW IVP PRN (12:29)
[2018-05-16 13:31] LABS: Bilirubin Negative (Negative); Blood, Urine Negative (Negative); Clarity CLEAR (Clear); Glucose, Urine (Dipstick) 500 mg/dL (Negative); Leukocyte Negative (Negative); Nitrite Negative (Negative); Protein, Urine (Dipstick) Negative (Neg-Trace); Specific Gravity, Urine 1.011 (1.002-1.036)
[2018-05-16 13:41] LABS: Bacteria/HPF None Seen HPF (None Seen); Hyaline Casts/LPF 0-3 HYALINE CAST LPF (0-3 Hyaline); Pathc Cast-AUWi Flag 0.14 (0-2.49); RBC/HPF 0-3 HPF (0-3); Squamous Epithelial None Seen HPF (0-3); WBC/HPF None Seen HPF (0-3)
--- NOTE | 2018-05-16 16:02 | PDOC.PN ---
- Subjective Encounter Start Date: 05/16/18 Encounter Start Time: 12:30 -: old records requested/rev Pt seen and examined, chart reviewed in its entirety, this is my first visit with this patient. follow up for DKA, N/V No F/C, some nausea, no V/D/C, no CP or SOB, no cough or sputum All systems reviewed and neg except as above - Objective Resuscitation Status - Order Detail: 05/13/18 01:59 Resuscitation Status Routine Resuscitation Status: FULL: Full Resuscitation MAR Reviewed: Yes Vital Signs & Weight: Vital Signs (12 hours) Temp Pulse Resp BP BP Pulse Ox 05/16/18 11:31 98.8 F 98 18 177/96 H 96 05/16/18 09:08 84 123/74 05/16/18 09:06 123/74 05/16/18 08:00 100 05/16/18 07:46 97.6 F 116 H 18 123/74 98 Weight Weight 147 lb 11.2 oz I&O: 05/15/18 05/16/18 05/17/18 06:59 06:59 06:59 Intake Total 2172 2915 Output Total 1700 875 Balance 472 2040 Result Diagrams: 05/17/18 05:01 05/18/18 05:05 Additional Labs: Accuchecks 05/16/18 05/16/18 05/15/18 11:33 04:15 19:35 POC Glucose 200 H 159 H 177 H 05/15/18 16:13 POC Glucose 147 H Radiology Reviewed by me: Yes EKG Reviewed by me: Yes Phys Exam - Physical Examination Constitutional: NAD HEENT: PERRLA, moist MMs, sclera anicteric, oral pharynx no lesions Neck: no nodes, no JVD, supple, full ROM Respiratory: no wheezing, no rales, no rhonchi, clear to auscultation bilateral Cardiovascular: RRR, no significant murmur, no rub Gastrointestinal: soft, non-tender, no distention, positive bowel sounds Musculoskeletal: no edema Neurological: non-focal, normal sensation, moves all 4 limbs Lymphatic: no nodes Psychiatric: normal affect, A&O x 3 Skin: no rash, normal turgor, cap refill <2 seconds Dx/Plan (1) Abdominal pain Code(s): R10.9 - UNSPECIFIED ABDOMINAL PAIN Status: Resolved Qualifiers: Abdominal location: unspecified location Qualified Code(s): R10.9 - Unspecified abdominal pain (2) Chronic pain Code(s): G89.29 - OTHER CHRONIC PAIN Status: Chronic Qualifiers: Chronic pain type: chronic pain syndrome Qualified Code(s): G89.4 - Chronic pain syndrome (3) Uncontrolled diabetes mellitus Code(s): E11.65 - TYPE 2 DIABETES MELLITUS WITH HYPERGLYCEMIA Status: Chronic Qualifiers: Diabetes mellitus type: other specified (including CODIE) Coma presence: without coma (4) HTN (hypertension) Code(s): I10 - ESSENTIAL (PRIMARY) HYPERTENSION Status: Chronic Qualifiers: Hypertension type: essential hypertension Qualified Code(s): I10 - Essential (primary) hypertension (5) Diabetic keto-acidosis Code(s): E13.10 - OTH DIABETES MELLITUS WITH KETOACIDOSIS WITHOUT COMA Status : Resolved Qualifiers: Diabetes mellitus type: type 2 Diabetes mellitus complication detail: without coma Qualified Code(s): E11.10 - Type 2 diabetes mellitus with ketoacidosis without coma Comment: Improved (6) Pancreatitis Code(s): K85.9 - ACUTE PANCREATITIS, UNSPECIFIED * DO NOT USE * Status: Acute - Plan cont current plan of care, PT/OT, social media director * .
[2018-05-16] MEDS: Ondansetron PF 4 MG/2 ML Vial IVP PRN (17:28)
[2018-05-16] MEDS: Sodium Chloride 0.45% 1,000 ML IV SCH (21:10)
[2018-05-17] MEDS: HYDROcodone/Acetaminophen 10/325 mg Tablet PO PRN ×6 (00:45→21:44)
[2018-05-17] MEDS: Ondansetron PF 4 MG/2 ML Vial IVP PRN (00:58)
[2018-05-17] MEDS: Sodium Chloride 0.45% 1,000 ML IV SCH ×2 (02:51→17:25)
[2018-05-17] MEDS: Sodium Chloride 0.9% 1,000 ML IV SCH ×3 (04:47→20:13)
[2018-05-17] MEDS: HumaLOG 300 UNITS/3 ML VIAL SC PRN ×2 (04:53→13:20)
[2018-05-17 05:37] LABS: #Eosinphils 0.3 thou/uL (0.0-0.7); #Lymphocytes 1.7 thou/uL (1.20-3.40); #Monocytes 0.4 thou/uL (0.11-0.59); #Neutrophils 1.5 thou/uL (1.40-6.50); %Eosinophils 7.9 % (0.0-10.0); %Lymphocytes 43.3 % (21.0-51.0); %Monocytes 10.2 % (0.0-10.0); %Neutrophils 37.7 % (42.0-75.0); Hemoglobin 11.1 g/dL (14.0-18.0); Mean Corpuscular HGB CONC 34.8 g/dL (32.0-36.0); Mean Corpuscular Hemoglobin 31.3 pg (27.0-31.0); Mean Corpuscular Volume 90.1 fL (78.0-98.0); Mean Platelet Volume 7.6 fL (7.4-10.4); Platelet Count 258 thou/uL (130-400); Red Blood Cell (RBC) Count 3.55 mill/uL (4.70-6.10)
[2018-05-17 05:42] LABS: Hemoglobin A1c 11.6 % (4.0-6.0)
[2018-05-17] MEDS: Pantoprazole 40 MG VIAL IVP SCH (08:31)
[2018-05-17] MEDS: Enoxaparin Sodium 40 MG/0.4 ML SYRINGE SC SCH (08:31)
[2018-05-17] MEDS: Amlodipine 5 MG TAB PO SCH (08:31)
[2018-05-17] MEDS: Lisinopril 20 MG TAB PO SCH (08:31)
[2018-05-17] MEDS: Gabapentin 300 MG CAP PO SCH ×3 (08:32→20:14)
[2018-05-17 12:12] LABS: Chloride 110 mmol/L (98-107); Magnesium 1.6 mg/dL (1.6-2.6); Potassium 3.6 mmol/L (3.5-5.1); Sodium 140 mmol/L (136-145)
[2018-05-17 12:13] LABS: Calcium 8.2 mg/dL (7.8-10.44); Glucose 195 mg/dL (80-115)
[2018-05-17 12:15] LABS: Anion Gap 8 mmol/L (10-20); Carbon Dioxide 26 mmol/L (23-31)
[2018-05-17 12:17] LABS: Calc. Creatinine Clearance 80 mL/min (70-130); Estimated GFR-MDRD Greater than 90
[2018-05-17 12:18] LABS: BUN (Urea Nitrogen) 7 mg/dL (8.4-25.7)
[2018-05-17] MEDS: Insulin Glargine 10 UNITS in Pre-Filled Syringe SC SCH (12:53)
[2018-05-17] MEDS ORDERED: Metoclopramide HCl 10 MG/2 ML VIAL IVP SCH (15:30)
[2018-05-17] MEDS: Metoclopramide 10 MG/10 ML UDCUP PO SCH ×2 (17:43→20:15)
[2018-05-18] MEDS: HYDROcodone/Acetaminophen 10/325 mg Tablet PO PRN ×2 (01:56→07:56)
[2018-05-18] MEDS: Sodium Chloride 0.9% 1,000 ML IV SCH (05:19)
[2018-05-18 05:54] LABS: Anion Gap 11 mmol/L (10-20); BUN (Urea Nitrogen) 9 mg/dL (8.4-25.7); Calc. Creatinine Clearance 83 mL/min (70-130); Calcium 8.3 mg/dL (7.8-10.44); Carbon Dioxide 22 mmol/L (23-31); Chloride 110 mmol/L (98-107); Estimated GFR-MDRD Greater than 90; Glucose 139 mg/dL (80-115); Potassium 3.7 mmol/L (3.5-5.1); Sodium 139 mmol/L (136-145)
[2018-05-18 07:40] VITALS: BP 144/76; TEMP 97.6
[2018-05-18] MEDS: Metoclopramide 10 MG/10 ML UDCUP PO SCH ×2 (07:55→12:36)
[2018-05-18] MEDS: Lisinopril 20 MG TAB PO SCH (07:55)
[2018-05-18] MEDS: Pantoprazole 40 MG VIAL IVP SCH (07:55)
[2018-05-18] MEDS: Gabapentin 300 MG CAP PO SCH (07:56)
[2018-05-18] MEDS: Insulin Glargine 10 UNITS in Pre-Filled Syringe SC SCH (07:57)
[2018-05-18] MEDS: Amlodipine 5 MG TAB PO SCH (07:57)
[2018-05-18] MEDS: Enoxaparin Sodium 40 MG/0.4 ML SYRINGE SC SCH (08:01)
--- NOTE | 2018-05-18 08:43 | PDOC.PN ---
- Subjective Encounter Start Date: 05/17/18 Encounter Start Time: 14:00 follow up for DKA No F/C, nasueated after lunch, no CP or SOB All systems reviewed and neg x as above - Objective Resuscitation Status - Order Detail: 05/13/18 01:59 Resuscitation Status Routine Resuscitation Status: FULL: Full Resuscitation MAR Reviewed: Yes Vital Signs & Weight: Vital Signs (12 hours) Temp Pulse Resp BP BP Pulse Ox 05/18/18 07:57 90 05/18/18 07:55 144/76 H 05/18/18 07:39 97.6 F 90 16 144/76 H 99 Weight Admit Weight 147 lb 11.2 oz Weight 147 lb 11.2 oz I&O: 05/17/18 05/18/18 05/19/18 06:59 06:59 06:59 Intake Total 2700 2508 Balance 2700 2508 Result Diagrams: 05/17/18 05:01 05/18/18 05:05 Additional Labs: Accuchecks 05/18/18 05/17/18 05/17/18 04:55 19:52 16:34 POC Glucose 126 H 257 H 147 H 05/17/18 11:11 POC Glucose 205 H Phys Exam - Physical Examination Constitutional: NAD HEENT: PERRLA, moist MMs, sclera anicteric, oral pharynx no lesions Neck: no nodes, no JVD, supple, full ROM Respiratory: no wheezing, no rales, no rhonchi, clear to auscultation bilateral Cardiovascular: RRR Gastrointestinal: soft, non-tender, no distention, positive bowel sounds Musculoskeletal: no edema Neurological: non-focal, normal sensation, moves all 4 limbs Lymphatic: no nodes Psychiatric: normal affect, A&O x 3 Skin: no rash, normal turgor, cap refill <2 seconds Dx/Plan (1) Abdominal pain Code(s): R10.9 - UNSPECIFIED ABDOMINAL PAIN Status: Resolved Qualifiers: Abdominal location: unspecified location Qualified Code(s): R10.9 - Unspecified abdominal pain (2) Chronic pain Code(s): G89.29 - OTHER CHRONIC PAIN Status: Chronic Qualifiers: Chronic pain type: chronic pain syndrome Qualified Code(s): G89.4 - Chronic pain syndrome (3) Uncontrolled diabetes mellitus Code(s): E11.65 - TYPE 2 DIABETES MELLITUS WITH HYPERGLYCEMIA Status: Chronic Qualifiers: Diabetes mellitus type: other specified (including CODIE) Coma presence: without coma (4) HTN (hypertension) Code(s): I10 - ESSENTIAL (PRIMARY) HYPERTENSION Status: Chronic Qualifiers: Hypertension type: essential hypertension Qualified Code(s): I10 - Essential (primary) hypertension (5) Diabetic keto-acidosis Code(s): E13.10 - OTH DIABETES MELLITUS WITH KETOACIDOSIS WITHOUT COMA Status : Resolved Qualifiers: Diabetes mellitus type: type 2 Diabetes mellitus complication detail: without coma Qualified Code(s): E11.10 - Type 2 diabetes mellitus with ketoacidosis without coma Comment: Improved (6) Pancreatitis Code(s): K85.9 - ACUTE PANCREATITIS, UNSPECIFIED * DO NOT USE * Status: Acute - Plan cont current plan of care, PT/OT, out of bed/ambulate * . start reglan QID, suspect gastroparesis
[2018-05-18] MEDS: HumaLOG 300 UNITS/3 ML VIAL SC PRN (12:33)
--- NOTE | 2018-05-18 13:24 | DIS ---
DATE OF ADMISSION: 05/13/2018 DATE OF DISCHARGE: 05/18/2018 PRIMARY CARE PHYSICIAN: Osmani Peralta MD. DISCHARGE DIAGNOSES: 1. Diabetic ketoacidosis. 2. Diabetes mellitus type 2, uncontrolled. 3. Diabetic gastroparesis and diabetic neuropathy. 4. Hypertension. 5. Intractable nausea and vomiting secondary to gastroparesis. 6. Chronic back pain. CONSULTATIONS: Pulmonary Critical Care, Dr. Howard on 05/13/2018. PROCEDURES: None. HISTORY AND PHYSICAL: Mr. Conde is a 62-year-old gentleman with history of diabetes on glipizide, who presented to the emergency department for intractable nausea and vomiting. Workup there showed elevated beta hydroxybutyrate, elevated sugar, anion gap metabolic acidosis. He was admitted for DKA on DKA protocol. HOSPITAL COURSE: The patient was examined by Dr. Castro, started on the DKA protocol, and the case taken over by Dr. Mora. The patient was seen by Dr. Mora and the patient had developed hypoglycemia due to an inadvertent 2nd bolus of insulin given. His dextrose infusion was adjusted and the patient was given DKA protocol. He was continued on the protocol and by 05/14/2018, the patient was doing much better. He is on Lantus 5 units subcu b.i.d. and sliding scale insulin, was taken off the drip. He continued to improve and by 05/16 I took the case over. He still was having some nausea and vomiting especially with meals. The patient was transitioned to daily Lantus and was requiring almost no correction. His sugars remained controlled and by 05/17/2018, he was stable for discharge. At the time of discharge, however, after a meal, the patient became very nauseated, had abdominal pain. He was started on Reglan IV x1 dose with oral scheduled and by 05/18/2018 his nausea virtually resolved. On the day of stable for discharge with outpatient followup. PHYSICAL EXAMINATION: The patient was seen and examined on the day of discharge. Discharge plan and disposition were discussed with the patient face to face at the bedside with the medical student. DISCHARGE MEDICATIONS: New medications: 1. Lantus 10 units subcu q.a.m. 2. Reglan 10 mg p.o. q.i.d. schedule. 3. Zofran 8 mg p.o. t.i.d. p.r.n. nausea. 4. Diabetic care pen needles, three boxes with two refills. 5. Norvasc 5 mg daily. Home medications to continue: 1. Lisinopril 20 mg daily. 2. Neurontin 600 mg p.o. b.i.d. FOLLOWUP APPOINTMENTS: 1. Primary care physician in a week. 2. Pain doctor as scheduled. DISCHARGE CONDITION: Stable. DISPOSITION: Discharged home via private vehicle. DISCHARGE ACTIVITY: As tolerated. DISCHARGE DIET: Heart healthy diabetic diet recommended. Job ID: [id number]
== END 2018-05-18 14:20 | disposition home or self-care (01) | DRG 638 ==
LOC: ERS 23:19 → ERHOLD 05-13 01:41 → IMCU/EMU 05-13 12:18 → T4-B 05-14 07:55
PROVIDERS: ADMIT Hospitalist; ATTEND Hospitalist
PROC: 02HV33Z Insertion of Infusion Device into Superior Vena Cava, Percutaneous Approach (ICD-10-PCS; principal; 2018-05-13)
DX: E11.10 Type 2 diabetes mellitus with ketoacidosis without coma (principal); N17.9 Acute kidney failure, unspecified; I10 Essential (primary) hypertension; Z86.711 Personal history of pulmonary embolism; J20.9 Acute bronchitis, unspecified; E11.65 Type 2 diabetes mellitus with hyperglycemia; E11.43 Type 2 diabetes mellitus with diabetic autonomic (poly)neuropathy; K31.84 Gastroparesis; M54.9 Dorsalgia, unspecified; G89.4 Chronic pain syndrome
CPT/HCPCS: 36415; 36416; 71045; 74177; 80048; 80053; 80306; 81001; 81003; 82010; 82550; 83036; 83690; 83735; 84100; 84484; 85025; 87086; 90471; 90686; 93005; C9113; G0008; J1650; J1815; J2270; J2405; J2550; J2765; J3010; J3480; J7050; J7070